=== PATIENT | male | born 1950 | race Caucasian/White ===

== ENCOUNTER → 2019-06-28 | Outpatient (CLI) | payer OTHER ==
[~2019-06-28] MED LIST: CLARITIN-D 24 H1 TA1 PO; IBUPROFEN 600600 M1 PO; PREVACID 24HR15 MG PO; SIMVASTATIN40 MG PO
== END ==
LOC: CAT 10:45
DX: Z13.6 Encounter for screening for cardiovascular disorders (principal); I25.10 Atherosclerotic heart disease of native coronary artery without angina pectoris; E78.00 Pure hypercholesterolemia, unspecified

== ENCOUNTER 2019-07-22 10:59 | Emergency (ER) | payer OTHER ==
[~2019-07-22] VITALS: Ht 170.2 cm; Wt 79.4 kg
[2019-07-22] MEDS ORDERED: KEFLEX500 M1 PO (12:09)
[2019-07-22 12:52] VITALS: BP 142/93
== END 2019-07-22 12:50 | disposition home or self-care (01) ==
LOC: ER 10:59
DX: S62.635B Displaced fracture of distal phalanx of left ring finger, initial encounter for open fracture (principal); E78.5 Hyperlipidemia, unspecified; K21.9 Gastro-esophageal reflux disease without esophagitis; W31.89XA Contact with other specified machinery, initial encounter; Y93.89 Activity, other specified; Y92.89 Other specified places as the place of occurrence of the external cause; Y99.8 Other external cause status